=== PATIENT | female | born 1985 | race African-American/Black ===

== ENCOUNTER 2016-09-26 16:28 | Emergency (ER) | payer MEDICAID | END 2016-09-26 18:46 | disposition home or self-care (01) | LOC: D.ER 16:28 | DX: S80.812A Abrasion, left lower leg, initial encounter (principal); S80.811A Abrasion, right lower leg, initial encounter; X58.XXXA Exposure to other specified factors, initial encounter; Y93.89 Activity, other specified; Y92.89 Other specified places as the place of occurrence of the external cause ==